=== PATIENT | male | born 1970 | race Caucasian/White ===

== ENCOUNTER 2020-04-19 21:35 | Inpatient (IN) | payer OTHER, SELFPAY ==
[2020-04-19 21:40] VITALS: BP 167/93; PULSE 90; RESP 24; TEMP 37.7; O2SAT 93; BMI 27.6
--- NOTE | 2020-04-19 21:43 | ED_ITS ---
HPI - SOB/Dyspnea General Chief Complaint: Upper Respiratory Symptoms Stated Complaint: SOB Time Seen by Provider: 04/19/20 21:35 Source: patient Mode of arrival: Ambulatory Limitations: no limitations History of Present Illness HPI Narrative: 49-year-old male nonsmoker was born premature and admits to being known COVID positive since he was swabbed at the [facility] on . His son also tested positive and had been having symptoms for now approximately 2 weeks. This patient presents because of increasing weakness and work of breathing over the past few days. He has been to the emergency department on multiple occasions, most recently yesterday at [facility]. He apparently needed a brief course of oxygen by nasal cannula which helped and then he was discharged home with return precautions. He has had episodes of nausea and vomiting. MD Complaint: shortness of breath and cough Onset (ago): day(s) Context: recent illness Severity: moderate Consistency/Duration: constant Relieving factors: nothing Exacerbating factors: exertion Associated symptoms: chest congestion Related Data Home oxygen amount: none Allergies Allergy/AdvReac Type Severity Reaction Status Date / Time No Known Drug Allergies Allergy Verified 04/19/20 22:25 Review of Systems Constitutional Constitutional: Reports chills, Reports fatigue, Denies fever(s), Denies frequent falls, Denies lethargy and Reports weakness Eyes Eyes: Denies change in vision, Denies eye discharge, Denies irritation and Denies loss of vision ENT Ears, Nose, Mouth, and Throat: Denies change in voice, Denies dizziness, Denies neck pain, Denies sore throat and Denies throat swelling Cardiovascular Cardiovascular: Denies chest pain, Denies irregular heart rhythm, Denies lightheadedness, Denies palpitations, Reports dyspnea, Denies dyspnea on exertion and Denies orthopnea Respiratory Respiratory: Reports cough, Reports dyspnea, Denies dyspnea on exertion and Reports wheezing Gastrointestinal Gastrointestinal: Denies abdominal pain, Denies change in bowel habits, Denies diarrhea, Denies nausea and Denies vomiting Musculoskeletal Musculoskeletal: Denies neck pain and Denies numbness Integumentary/Breasts Skin/Breast: Denies pruritus, Denies erythema, Denies rash and Denies wounds Neurologic Neurologic: Denies behavioral changes, Denies confusion, Denies dizziness, Denies frequent falls, Denies loss of vision, Denies numbness and Reports weakness Psychiatric Psychiatric: Denies anxiety, Denies behavioral changes, Denies confusion, Denies depression, Denies homicidal ideation and Denies suicidal ideation Endocrine Endocrine: Reports fatigue, Denies flushing and Denies palpitations Hematologic/Lymphatic Hematologic/Lymphatic: Denies easy bruising Allergic/Immunologic Allergic/Immunologic: Denies urticaria, Denies throat swelling and Reports wheezing Patient History Social History Smoking Status: Never smoker Smoking Status: Never smoker alcohol intake frequency: 0-2 drinks per day Substance Use Type: does not use Exam Narrative Exam Narrative: GENERAL: [49] year old patient appears stated age. Well- nourished, well-developed patient, in obvious distress, increased breathing harsh nonproductive cough HEAD: Atraumatic. Normocephalic. EYES: Pupils equal round and reactive. Extraocular motions intact. No scleral icterus. No injection or drainage. ENT: Nose without bleeding, purulent drainage. Throat without erythema, tonsillar hypertrophy or exudate. Airway patent. NECK: Trachea midline. Non tender CARDIOVASCULAR: Regular rate and rhythm without murmurs, gallops, or rubs. RESPIRATORY: Clear to auscultation. Breath sounds equal bilaterally. No wheezes, rales, or rhonchi. GASTROINTESTINAL: Abdomen soft, non-tender, nondistended. EXTREMITIES: No edema or joint tenderness. BACK: Nontender without deformity or crepitance. No flank tenderness. NEURO: AOx3. SKIN: No rash or erythema of visible areas Initial Vital Signs Initial Vital Signs: Vital Signs Temperature 100 F H 04/19/20 21:40 Pulse Rate 90 04/19/20 21:40 Respiratory Rate 24 04/19/20 21:40 Blood Pressure 167/93 H 04/19/20 21:40 Pulse Oximetry 93 04/19/20 21:40 Course Orders Ordered: ED Orders 04/19/20 22:05 C-Reactive Protein Quant Stat Complete Blood Count AUTO DIFF Stat Comprehensive Metabolic Panel Stat D Dimer Stat Ferritin Stat Lactate Dehydrogenase Stat NT-proBNP (BNP-Adult 18+) Stat Procalcitonin Stat Troponin & CK Cardiac Panel Stat 04/19/20 22:06 XR chest 1V Stat Arterial Blood Gas Stat 04/19/20 22:15 COVID19 Stat Influenza A & B (PCR) Stat 04/19/20 22:25 Blood Culture Stat 04/19/20 22:33 CT angio chest PE protocol Stat 04/19/20 22:43 ABG [Arterial Blood Gas] Stat Sodium Chloride (Normal Saline 0.9%) 1,000 mls @ 125 mls/hr IV CONT ASHLY Last Infusion: 04/19/20 23:49 Dose: 125 mls/hr Documented by: Infusion: 04/19/20 23:10 Dose: 0 mls/hr Documented by: Admin: 04/19/20 22:17 Dose: 125 mls/hr Documented by: ANA MARIA Discontinued Medications Dexamethasone (Dexamethasone 10 Mg/Ml Vial) 6 mg IV NOW ONE Stop: 04/19/20 23:27 Last Admin: 04/20/20 00:33 Dose: 6 mg Documented by: WALKER Remdesivir 200 mg/ Sodium (Chloride) 250 mls @ 250 mls/hr IV NOW ONE Stop: 04/19/20 23:27 Last Admin: 04/20/20 00:32 Dose: 250 mls/hr Documented by: WALKER Vital Signs Vital signs: Vital Signs - 8 hr 04/19/20 21:40 04/19/20 22:06 04/19/20 22:30 Temperature 100 F H Pulse Rate 90 89 84 Respiratory Rate 24 Blood Pressure 167/93 H Pulse Oximetry 93 93 91 04/19/20 23:00 Temperature Pulse Rate 85 Respiratory Rate 28 H Blood Pressure Pulse Oximetry 93 MDM - SOB/Dyspnea Lab Data Result diagrams: 04/19/20 22:05 04/19/20 22:05 Labs: Lab Results 04/19/20 04/19/20 04/19/20 Range/Units 22:05 22:05 22:05 WBC 6.0 (4.5-11.0) X10^3/uL RBC 5.12 (4.5-5.9) X10^6/uL Hgb 15.5 (13.5-17.5) g/dL Hct 44.8 (41-53) % MCV 87.6 (80-100) fL MCH 30.3 (26-34) PG MCHC 34.6 (30-36) % RDW 13.0 (11.6-14.8) % Plt Count 235 (150-400) X10^3/uL Neut % (Auto) 76.2 H (50-75) % Lymph % (Auto) 12.2 L (25-40) % [place] % (Auto) 10.9 (3-14) % Eos % (Auto) 0.6 L (2-4) % Baso % (Auto) 0.1 (0-2) % Neut # (Auto) 4600 (6227-3371) /uL Lymph # (Auto) 700 L (7984-8889) /uL [place] # (Auto) 700 (0-900) /uL Eos # (Auto) 0 (0-450) /uL Baso # (Auto) 0 (0-100) /uL D-Dimer 709 H (<230) ng/mL ABG pH (7.35-7.45) ABG pCO2 (35-45) mmHg ABG pO2 (80-100) mmHg ABG HCO3 (22-26) mmol/L ABG Total CO2 (21-31) mmol/L ABG O2 Saturation (95-100) % ABG Base Excess (-2-2) mmol/L FiO2 Sodium (137-145) mmol/L Potassium (3.4-5.1) mmol/L Chloride (98-107) mmol/L Carbon Dioxide (22-32) mmol/L BUN (9-20) mg/dL Creatinine (0.66-1.25) mg/dL Estimated GFR (>60) mL/min BUN/Creatinine Ratio (6-22) Glucose (70-100) mg/dL Calcium (8.4-10.2) mg/dL Ferritin (18-464) ng/mL Total Bilirubin (0.2-1.3) mg/dL AST (17-59) IU/L ALT (<50) IU/L Alkaline Phosphatase (38-126) U/L Lactate Dehydrogenase (313-618) U/L Total Creatine Kinase (55-170) U/L CK-MB (CK-2) (<2.37) ng/mL CK-MB (CK-2) Rel Index (1.5-5.0) % Troponin I (0.01-0.034) ng/mL C-Reactive Protein (<1.0) mg/dL NT-Pro-B Natriuret Pep (<125) pg/mL Total Protein (6.3-8.2) g/dL Albumin (3.5-5.0) g/dL Globulin (1.7-4.1) g/dL Albumin/Globulin Ratio (1.0-2.8) Procalcitonin 0.10 (<0.5) ng/mL COVID-19 PCR (Negative) Influenza A (RT-PCR) (NEGATIVE) Influenza B (RT-PCR) (NEGATIVE) 04/19/20 04/19/20 04/19/20 Range/Units 22:05 22:15 22:15 WBC (4.5-11.0) X10^3/uL RBC (4.5-5.9) X10^6/uL Hgb (13.5-17.5) g/dL Hct (41-53) % MCV (80-100) fL MCH (26-34) PG MCHC (30-36) % RDW (11.6-14.8) % Plt Count (150-400) X10^3/uL Neut % (Auto) (50-75) % Lymph % (Auto) (25-40) % [place] % (Auto) (3-14) % Eos % (Auto) (2-4) % Baso % (Auto) (0-2) % Neut # (Auto) (4113-8098) /uL Lymph # (Auto) (9579-4219) /uL [place] # (Auto) (0-900) /uL Eos # (Auto) (0-450) /uL Baso # (Auto) (0-100) /uL D-Dimer (<230) ng/mL ABG pH (7.35-7.45) ABG pCO2 (35-45) mmHg ABG pO2 (80-100) mmHg ABG HCO3 (22-26) mmol/L ABG Total CO2 (21-31) mmol/L ABG O2 Saturation (95-100) % ABG Base Excess (-2-2) mmol/L FiO2 Sodium 134 L (137-145) mmol/L Potassium 3.6 (3.4-5.1) mmol/L Chloride 103 (98-107) mmol/L Carbon Dioxide 26 (22-32) mmol/L BUN 16 (9-20) mg/dL Creatinine 0.85 (0.66-1.25) mg/dL Estimated GFR > 60.0 (>60) mL/min BUN/Creatinine Ratio 18.8 (6-22) Glucose 139 H (70-100) mg/dL Calcium 8.8 (8.4-10.2) mg/dL Ferritin 541 H (18-464) ng/mL Total Bilirubin 0.7 (0.2-1.3) mg/dL AST 61 H (17-59) IU/L ALT 50 H (<50) IU/L Alkaline Phosphatase 80 (38-126) U/L Lactate Dehydrogenase 972 H (313-618) U/L Total Creatine Kinase 781 H (55-170) U/L CK-MB (CK-2) 0.28 (<2.37) ng/mL CK-MB (CK-2) Rel Index 0.0 L (1.5-5.0) % Troponin I < 0.012 (0.01-0.034) ng/mL C-Reactive Protein 14.5 H (<1.0) mg/dL NT-Pro-B Natriuret Pep 56 (<125) pg/mL Total Protein 7.4 (6.3-8.2) g/dL Albumin 4.0 (3.5-5.0) g/dL Globulin 3.4 (1.7-4.1) g/dL Albumin/Globulin Ratio 1.2 (1.0-2.8) Procalcitonin (<0.5) ng/mL COVID-19 PCR Positive H (Negative) Influenza A (RT-PCR) Flu a negative (NEGATIVE) Influenza B (RT-PCR) Flu b negative (NEGATIVE) 04/19/20 Range/Units 22:43 WBC (4.5-11.0) X10^3/uL RBC (4.5-5.9) X10^6/uL Hgb (13.5-17.5) g/dL Hct (41-53) % MCV (80-100) fL MCH (26-34) PG MCHC (30-36) % RDW (11.6-14.8) % Plt Count (150-400) X10^3/uL Neut % (Auto) (50-75) % Lymph % (Auto) (25-40) % [place] % (Auto) (3-14) % Eos % (Auto) (2-4) % Baso % (Auto) (0-2) % Neut # (Auto) (5822-6789) /uL Lymph # (Auto) (2228-6848) /uL [place] # (Auto) (0-900) /uL Eos # (Auto) (0-450) /uL Baso # (Auto) (0-100) /uL D-Dimer (<230) ng/mL ABG pH 7.44 (7.35-7.45) ABG pCO2 34.2 L (35-45) mmHg ABG pO2 64 L (80-100) mmHg ABG HCO3 23 (22-26) mmol/L ABG Total CO2 24 (21-31) mmol/L ABG O2 Saturation 93 L (95-100) % ABG Base Excess -1.0 (-2-2) mmol/L FiO2 21 Sodium (137-145) mmol/L Potassium (3.4-5.1) mmol/L Chloride (98-107) mmol/L Carbon Dioxide (22-32) mmol/L BUN (9-20) mg/dL Creatinine (0.66-1.25) mg/dL Estimated GFR (>60) mL/min BUN/Creatinine Ratio (6-22) Glucose (70-100) mg/dL Calcium (8.4-10.2) mg/dL Ferritin (18-464) ng/mL Total Bilirubin (0.2-1.3) mg/dL AST (17-59) IU/L ALT (<50) IU/L Alkaline Phosphatase (38-126) U/L Lactate Dehydrogenase (313-618) U/L Total Creatine Kinase (55-170) U/L CK-MB (CK-2) (<2.37) ng/mL CK-MB (CK-2) Rel Index (1.5-5.0) % Troponin I (0.01-0.034) ng/mL C-Reactive Protein (<1.0) mg/dL NT-Pro-B Natriuret Pep (<125) pg/mL Total Protein (6.3-8.2) g/dL Albumin (3.5-5.0) g/dL Globulin (1.7-4.1) g/dL Albumin/Globulin Ratio (1.0-2.8) Procalcitonin (<0.5) ng/mL COVID-19 PCR (Negative) Influenza A (RT-PCR) (NEGATIVE) Influenza B (RT-PCR) (NEGATIVE) Imaging Data Chest x-ray: Radiologist's Impression: multi focal pneumonia consistant with covid CT scan - chest: Radiologist's Impression: No PE Discharge Plan Departure Patient Disposition: Admitted As Inpatient Clinical Impression: Pneumonia due to 2019 novel coronavirus Admit Date/Time: 04/20/20 00:50 Admit Provider: Leonardo Sexton
[2020-04-19 22:06] VITALS: PULSE 89; O2SAT 93
--- NOTE | 2020-04-19 22:06 | DI.RAD.S_ITS ---
PROCEDURE: XR CHEST 1V INDICATIONS: flu-like symptoms TECHNIQUE: One view of the chest was acquired. COMPARISON: None. FINDINGS: Surgical changes and devices: None. Lungs and pleura: Patchy right greater than left airspace opacities. No pleural effusions or pneumothorax. Mediastinum: Mediastinal contours appear normal. Heart size is normal. Bones and chest wall: No suspicious bony lesions. Overlying soft tissues appear unremarkable. IMPRESSION: Patchy right greater than left airspace opacities compatible with multifocal pneumonia. Recommend follow up chest radiograph 4-6 weeks after treatment to document resolution of findings and/or return to baseline examination. No significant discrepancy with the senior hris analyst radiology preliminary report. Dictated by: Severo Mcnulty M.D. on 04/20/2020 at 8:12 Approved by: Severo Mcnulty M.D. on 04/20/2020 at 8:13
[2020-04-19] MEDS: SODIUM CHLORIDE 0.9% 1,000 ML 125 ML IV (22:17)
[2020-04-19 22:19] LABS: Add Manual Diff / Slide Review NO; Basophils Absolute Auto 0 /uL (0-100); Basophils Percent Auto 0.1 % (0-2); Eosinophils Absolute Auto 0 /uL (0-450); Eosinophils Percent Auto 0.6 % (2-4); Hematocrit 44.8 % (41-53); Hemoglobin 15.5 g/dL (13.5-17.5); Lymphocytes Absolute Auto 700 /uL (1100-4500); Lymphocytes Percent Auto 12.2 % (25-40); Mean Corpuscular HGB Conc 34.6 % (30-36); Mean Corpuscular Hemoglobin 30.3 PG (26-34); Mean Corpuscular Volume 87.6 fL (80-100); Monocytes Absolute Auto 700 /uL (0-900); Monocytes Percent Auto 10.9 % (3-14); Neutrophils Absolute Auto 4600 /uL (1500-7000); Neutrophils Percent Auto 76.2 % (50-75); Platelet Count 235 X10^3/uL (150-400); Red Blood Cell Count 5.12 X10^6/uL (4.5-5.9)
[2020-04-19 22:26] LABS: D Dimer 709 ng/mL (<230)
[2020-04-19 22:30] VITALS: PULSE 84; O2SAT 91
[2020-04-19 22:32] LABS: Alanine Aminotransferase 50 IU/L (<50); Albumin Globulin Ratio 1.2 (1.0-2.8); Alkaline Phosphatase 80 U/L (38-126); Aspartate Aminotransferase 61 IU/L (17-59); BUN Creatinine Ratio 18.8 (6-22); Bilirubin Total 0.7 mg/dL (0.2-1.3); Blood Urea Nitrogen 16 mg/dL (9-20); Calcium 8.8 mg/dL (8.4-10.2); Carbon Dioxide 26 mmol/L (22-32); Chloride 103 mmol/L (98-107); Creatine Kinase 781 U/L (55-170); Estimated Glomerular Filt Rate > 60.0 mL/min (>60); Globulin 3.4 g/dL (1.7-4.1); Glucose 139 mg/dL (70-100); HEMOLYSIS < 15 (0-50); Lactate Dehydrogenase 972 U/L (313-618); Potassium 3.6 mmol/L (3.4-5.1); Sodium 134 mmol/L (137-145); Total Protein 7.4 g/dL (6.3-8.2)
--- NOTE | 2020-04-19 22:33 | DI.CT.S_ITS ---
PROCEDURE: CT ANGIO CHEST PE PROTOCOL INDICATIONS: severe shortness of breath, cough, multifocal infiltrate CXR, +Dimer TECHNIQUE: After the administration of intravenous contrast, 2 mm thick sections acquired from the pulmonary apices to the posterior costophrenic angles. 3-dimensional maximum intensity projection (MIP) coronal and sagittal reformats were then acquired through the thorax. For radiation dose reduction, the following was used: automated exposure control, adjustment of mA and/or kV according to patient size. COMPARISON: None. FINDINGS: Image quality: Excellent. Pulmonary arteries: Pulmonary arteries are normal in size, and demonstrate no intraluminal filling defects to suggest central pulmonary embolism. Lungs and pleura: There are numerous scattered patchy ground-glass opacities involving the bilateral hemithoraces with a more predominant peripheral distribution. Some perihilar involvement noted. No pleural effusions or pneumothorax. Central and peripheral airways are patent. Mediastinum: Heart size is normal, without pericardial effusion. No mediastinal or hilar adenopathy. Thoracic aorta is normal in caliber and enhancement. Esophagus is normal in caliber, without hiatal hernia. Bones and chest wall: No suspicious bony lesions. Ribs and thoracic spine appear intact throughout. Thyroid gland is unremarkable . No axillary or supraclavicular adenopathy. Abdomen: Visualized upper abdominal solid organs appear normal in the early arterial phase of enhancement. IMPRESSION: 1. No acute pulmonary emboli identified. No evidence for thoracic aortic aneurysm or dissection. 2. Diffuse patchy ground-glass opacities of the bilateral hemithoraces compatible with an infectious process/multifocal pneumonia with viral etiology suspected. Bacterial pneumonia not excluded. Recommend follow-up imaging to document resolution. No significant discrepancy with the night warehouse manager radiology preliminary report. Dictated by: Severo Mcnulty M.D. on 04/20/2020 at 8:28 Approved by: Severo Mcnulty M.D. on 04/20/2020 at 8:59
[2020-04-19 22:42] LABS: NT-proBNP (BNP-Adult 18+) 56 pg/mL (<125); Troponin I < 0.012 ng/mL (0.01-0.034)
[2020-04-19 22:45] LABS: C-Reactive Protein Quant 14.5 mg/dL (<1.0); Creatine Kinase MB 0.28 ng/mL (<2.37)
[2020-04-19 22:59] LABS: Influenza A - CEPHEID Flu A NEGATIVE (NEGATIVE); Influenza B - CEPHEID Flu B NEGATIVE (NEGATIVE)
[2020-04-19 23:00] VITALS: PULSE 85; RESP 28; O2SAT 93
[2020-04-19 23:04] LABS: Ferritin 541 ng/mL (18-464)
[2020-04-19 23:09] LABS: PCO2 ABG 34.2 mmHg (35-45); PO2 ABG 64 mmHg (80-100); pH ABG 7.44 (7.35-7.45)
[2020-04-19 23:10] LABS: HCO3 ABG 23 mmol/L (22-26); TCO2 ABG 24 mmol/L (21-31)
[2020-04-19 23:11] LABS: Fractionated Inspired Oxygen 21; Oxygen Saturation ABG 93 % (95-100)
[2020-04-19 23:30] VITALS: PULSE 84; RESP 24; O2SAT 96
[2020-04-19 23:34] VITALS: BP 182/87; PULSE 83; RESP 28; O2SAT 95
[2020-04-20] VITALS (17 sets, daily range): BP systolic 133–172; BP diastolic 78–102; PULSE 62–93; RESP 16–30; TEMP 35.3–36.7; O2SAT 92–98; BMI 31.5
--- NOTE | 2020-04-20 | PC.NURSE ---
Pt placed on 2L O2 via NC per MD request.
[2020-04-20] MEDS: REMDESIVIR 200 MG in SODIUM CHLORIDE 0.9% 210 ML 250 ML IV (00:32)
[2020-04-20] MEDS: DEXAMETHASONE 10 MG/ML VIAL 6 MG IV ×2 (00:33→20:57)
--- NOTE | 2020-04-20 01:35 | PM.HP.1 ---
History of Present Illness History of Present Illness Date Patient Seen: 04/20/20 Time Patient Seen: 01:45 Chief complaint: SOB Narrative: Mr. Bola Bender is a 49-year-old male with a past medical cyst history only significant for chronic migraines presents to the ER today with shortness of breath. The patient reports that 10 days ago he began having symptoms of malaise and cough that progressed to myalgia and nausea with fevers and chills. The patient has been tested positive for [place] in and has been seen at [facility] ER most recent visit was yesterday Marielos was seen provided a brief treatment with oxygen and discharged to home. The patient continues to worsen with dry nonproductive cough progressing into paroxysms resulting with nausea and vomiting. The patient states his son became ill approximately 2 weeks ago and he became symptomatic 2 days later. His had a child in class who also tested positive for covered 19. The patient endorses a migraine headache exacerbated by coughing and has taken sumatriptan with some improvement. He denies reports chest wall pain abdominal pain from coughing. He denies palpitations or wheezing. He has had no changes in bowel habits and denies urinary symptoms. Upon arrival to the ER the patient has a temperature 100.0?, heart rate is 90, blood pressure 167/93, respirations 24 saturating 93% on room air. A chest x-rays taken which shows patchy bilateral infiltrates. A CT is obtained which finds no PE and patchy ground-glass interstitial infiltrates bilaterally. on laboratory analysis he has white count of 6.0, hemoglobin 15.5, hematocrit 44.8 and platelets of 235. His electrolytes are all within normal limits and has a BUN is 16 creatinine 0.85. His nonfasting glucose is 139. His liver functions are all within normal limits. His Coban 19 markers include D-dimer at 709, CRP of 14.5, ferritin of 541, LDH 972 and a CK of 781. His CK-MB index is 0.28 with an index of 0 0.0 as well as a negative troponin. His procalcitonin is 0.10. His covered screening still test positive. In the ED the patient received dexamethasone 6 mg IV and room does severe loading dose of 200 mg IV. The patient is admitted to the medicine service for [place] in 19 pneumonia. Patient History Medical History (Updated 04/20/20 @ 09:40 by KARIN Edmonds) Migraine headache Surgical History (Updated 04/20/20 @ 09:40 by KARIN Edmonds) History of knee surgery Family & Social History Family History (Updated 04/20/20 @ 09:41 by KARIN Edmonds) Father Trauma Mother Cardiovascular disease Social History: household members spouse,family,children Safety & Behavioral: Feels Safe in Current Yes Environment Suicidal Ideation Description None Suicide Plan Description No Plan Tobacco & Substance use: Smoking Status Never smoker alcohol intake frequency 0-2 drinks per day Substance Use Type does not use Meds Home Medications and Allergies Home Medications Medication Instructions Recorded Confirmed Type sumatriptan succinate 100 mg PO 4-6XD PRN 04/20/20 04/20/20 History Allergies Allergy/AdvReac Type Severity Reaction Status Date / Time No Known Drug Allergies Allergy Verified 04/19/20 22:25 Review of Systems Review of Systems ROS: Yes All systems reviewed with the patient and are negative except as otherwise documented Exam Vital Signs (past 8 hours): - 04/20/20 02:03 04/20/20 02:37 04/20/20 02:58 Temperature 97.5 F L 98 F Pulse Rate 93 H 86 75 Respiratory Rate 20 22 Blood Pressure 166/93 H 172/102 H Pulse Oximetry 95 95 97 04/20/20 03:42 04/20/20 05:49 04/20/20 08:41 Temperature 98.1 F Pulse Rate 83 80 80 Respiratory Rate 23 18 Blood Pressure 172/102 H 157/83 H Pulse Oximetry 96 98 Oxygen Delivery Method Nasal Cannula Oxygen Flow Rate 2 Narrative Exam Narrative: GENERAL APPEARANCE: well developed, obese male with a BMI of 31.5, obviously ill-appearing. HEENT: Normocephalic, PERRLA, conjunctiva injected, EOMs intact without nystagmus, no sinus tenderness to percussion, no rhinorrhea, mucous membranes are moist and pink without lesions or exudate. NECK/THYROID: neck supple, no JVD, no thyromegaly, trachea midline. LYMPH NODES: no cervical or supraclavicular lymphadenopathy. SKIN: [place], warm and dry, no visible lesions, rashes, ulcerations or petechiae. HEART: regular rate and rhythm, S1-S2, no murmur, no rubs or gallops, brisk capillary refill, no edema LUNGS: Lungs coarse bilaterally more so bilateral bases, frequent nonproductive try, raspy cough present CHEST: Symmetrical movement, no accessory muscle use, good tidal volume. ABDOMEN: Soft, no distention, no abdominal tenderness, no organomegaly, no flank or suprapubic tenderness, active bowel tones. BACK: Normal curvature, nontender to palpation, no CVA tenderness on percussion EXTREMITIES: moves all extremities, strength is 5/5 and symmetrical, no deformities or joint effusions. NEUROLOGIC: AAO x4, no lateral neurologic deficits, cranial nerves II-XII grossly intact, sensation intact to light touch, hearing grossly normal to speech. PSYCH: Flat affect, fair eye contact, cooperative, stable behavior Objective Labs Result Diagrams: 04/20/20 04:10 04/20/20 04:10 Labs: Laboratory Results - last 24 hr 04/19/20 04/19/20 04/19/20 22:05 22:05 22:05 WBC 6.0 RBC 5.12 Hgb 15.5 Hct 44.8 MCV 87.6 MCH 30.3 MCHC 34.6 RDW 13.0 Plt Count 235 Neut % (Auto) 76.2 H Lymph % (Auto) 12.2 L [place] % (Auto) 10.9 Eos % (Auto) 0.6 L Baso % (Auto) 0.1 Neut # (Auto) 4600 Lymph # (Auto) 700 L [place] # (Auto) 700 Eos # (Auto) 0 Baso # (Auto) 0 D-Dimer 709 H ABG pH ABG pCO2 ABG pO2 ABG HCO3 ABG Total CO2 ABG O2 Saturation ABG Base Excess FiO2 Sodium Potassium Chloride Carbon Dioxide BUN Creatinine Estimated GFR BUN/Creatinine Ratio Glucose Calcium Magnesium Ferritin Total Bilirubin AST ALT Alkaline Phosphatase Lactate Dehydrogenase Total Creatine Kinase CK-MB (CK-2) CK-MB (CK-2) Rel Index Troponin I C-Reactive Protein NT-Pro-B Natriuret Pep Total Protein Albumin Globulin Albumin/Globulin Ratio Procalcitonin 0.10 Nasal Screen MRSA (PCR) COVID-19 PCR Influenza A (RT-PCR) Influenza B (RT-PCR) 04/19/20 04/19/20 04/19/20 22:05 22:15 22:15 WBC RBC Hgb Hct MCV MCH MCHC RDW Plt Count Neut % (Auto) Lymph % (Auto) [place] % (Auto) Eos % (Auto) Baso % (Auto) Neut # (Auto) Lymph # (Auto) [place] # (Auto) Eos # (Auto) Baso # (Auto) D-Dimer ABG pH ABG pCO2 ABG pO2 ABG HCO3 ABG Total CO2 ABG O2 Saturation ABG Base Excess FiO2 Sodium 134 L Potassium 3.6 Chloride 103 Carbon Dioxide 26 BUN 16 Creatinine 0.85 Estimated GFR > 60.0 BUN/Creatinine Ratio 18.8 Glucose 139 H Calcium 8.8 Magnesium Ferritin 541 H Total Bilirubin 0.7 AST 61 H ALT 50 H Alkaline Phosphatase 80 Lactate Dehydrogenase 972 H Total Creatine Kinase 781 H CK-MB (CK-2) 0.28 CK-MB (CK-2) Rel Index 0.0 L Troponin I < 0.012 C-Reactive Protein 14.5 H NT-Pro-B Natriuret Pep 56 Total Protein 7.4 Albumin 4.0 Globulin 3.4 Albumin/Globulin Ratio 1.2 Procalcitonin Nasal Screen MRSA (PCR) COVID-19 PCR Positive H Influenza A (RT-PCR) Flu a negative Influenza B (RT-PCR) Flu b negative 04/19/20 04/20/20 04/20/20 22:43 02:15 04:10 WBC 5.8 RBC 4.95 Hgb 15.2 Hct 43.4 MCV 87.6 MCH 30.6 MCHC 34.9 RDW 12.9 Plt Count 237 Neut % (Auto) 82.3 H Lymph % (Auto) 11.1 L [place] % (Auto) 6.3 Eos % (Auto) 0.2 L Baso % (Auto) 0.1 Neut # (Auto) 4800 Lymph # (Auto) 600 L [place] # (Auto) 400 Eos # (Auto) 0 Baso # (Auto) 0 D-Dimer ABG pH 7.44 ABG pCO2 34.2 L ABG pO2 64 L ABG HCO3 23 ABG Total CO2 24 ABG O2 Saturation 93 L ABG Base Excess -1.0 FiO2 21 Sodium Potassium Chloride Carbon Dioxide BUN Creatinine Estimated GFR BUN/Creatinine Ratio Glucose Calcium Magnesium Ferritin Total Bilirubin AST ALT Alkaline Phosphatase Lactate Dehydrogenase Total Creatine Kinase CK-MB (CK-2) CK-MB (CK-2) Rel Index Troponin I C-Reactive Protein NT-Pro-B Natriuret Pep Total Protein Albumin Globulin Albumin/Globulin Ratio Procalcitonin Nasal Screen MRSA (PCR) Negative for mrsa COVID-19 PCR Influenza A (RT-PCR) Influenza B (RT-PCR) 04/20/20 04:10 WBC RBC Hgb Hct MCV MCH MCHC RDW Plt Count Neut % (Auto) Lymph % (Auto) [place] % (Auto) Eos % (Auto) Baso % (Auto) Neut # (Auto) Lymph # (Auto) [place] # (Auto) Eos # (Auto) Baso # (Auto) D-Dimer ABG pH ABG pCO2 ABG pO2 ABG HCO3 ABG Total CO2 ABG O2 Saturation ABG Base Excess FiO2 Sodium 135 L Potassium 3.9 Chloride 103 Carbon Dioxide 29 BUN 12 Creatinine 0.86 Estimated GFR > 60.0 BUN/Creatinine Ratio 14.0 Glucose 170 H Calcium 8.6 Magnesium 2.2 Ferritin Total Bilirubin 0.5 AST 60 H ALT 48 Alkaline Phosphatase 72 Lactate Dehydrogenase 974 H Total Creatine Kinase CK-MB (CK-2) CK-MB (CK-2) Rel Index Troponin I C-Reactive Protein NT-Pro-B Natriuret Pep Total Protein 7.2 Albumin 3.7 Globulin 3.5 Albumin/Globulin Ratio 1.1 Procalcitonin Nasal Screen MRSA (PCR) COVID-19 PCR Influenza A (RT-PCR) Influenza B (RT-PCR) Assessment & Plan Assessment & Plan narrative: This is a 49-year-old male patient who presents to the ER with shortness of breath onset 10 days ago with associated cough, fevers and myalgias. The patient has tested positive for COVID-19. 1. Covered 19 pneumonia, acute, present on admission, active. -the patient presents with an elevated respiratory rate of 24 and oxygen saturation 93 decreasing to 91 on room air. Patient is started on supplemental oxygen. -the patient has multiple positive markers including D-dimer elevated at 709, CRP 14.5, ferritin of 541, LDH 972, total CK of 781. -arterial blood gas reveals a pH of 7.44, pCO2 of 34.2, PO2 of 64, bicarb of 23 with a base excess of -1. -CTA of the chest finds no PE, patchy ground-glass interstitial infiltrates bilaterally. -ordered dexamethasone 6 mg IV daily for 10 days, 1st dose given in the ER, ordered fingerstick blood sugar checks a.c. and HS with low-dose correctional insulin anticipation of elevated blood sugars from steroid therapy. -ordered remdesivir 100 mg daily for 4 days, 1st loading dose of 200 mg is administered in the ER. -order guaifenesin 600 mg twice daily as needed. 2. Migraine headaches, acute, present on admission, active. -patient early presents with with a typical migraine headache worsened by frequent coughing. -will continue patient's home regimen of sumatriptan 100 mg by mouth, may repeat after 2 hours, maximum dose 200 mg/24 hours. 3. Elevated blood pressure reading without diagnosis of hypertension, present on admission, active. -patient presents with a blood pressure of 167/93 and 177/102 upon arrival to the floor. -the patient has not been prescribed antihypertensives, ordered losartan 25 mg daily. -will follow blood pressures and escalate doses as indicated. VTE prophylaxis: Heparin IV fluid: Saline lock Diet: Consistent carbohydrate. Code status: Full code, patient designates his Franca to be his surrogate decision maker. The patient is admitted to the hospital due to the severity of his symptoms hypoxia and risk for further deterioration complications and adverse events. The patient is admitted as an inpatient with expected length of stay to be greater than 2 midnights. COVID-19 COVID-19 status: Positive Result date/Date tested (Pos, Neg/Pending): 04/19/20 Scores GCS Dionisio coma scale eye opening: Spontaneous [place] coma scale verbal response: Orientated Dionisio coma scale motor response: Obey commands Dionisio coma scale total score: 15
[2020-04-20] MEDS: ACETAMINOPHEN 325 MG TABLET 650 MG PO (02:45)
[2020-04-20] MEDS: guaiFENesin ER 600 MG TAB PO (02:46)
--- NOTE | 2020-04-20 02:59 | PC.ADMIT ---
[id number] [facility] Admission Note: Pt arrived to unit, walked to bed from stretcher. Alert and oriented x4. SOB upon exertion. Frequent dry cough. Pt reports mild general pain. Darshan FRAZIER notified of pt increased BP. Pt on 2L O2 NC sats running at 95-97%. The patient,Bola Bender,49 y/o, was given written information regarding hospital policies, unit procedures and contact persons. Patient's smoking status: Never smoker. Vital Signs - 8 hr 04/19/20 21:40 04/19/20 22:06 04/19/20 22:30 Temperature 100 F H Pulse Rate 90 89 84 Respiratory Rate 24 Blood Pressure 167/93 H Pulse Oximetry 93 93 91 04/19/20 23:00 04/19/20 23:30 04/19/20 23:34 Temperature Pulse Rate 85 84 83 Respiratory Rate 28 H 24 28 H Blood Pressure 182/87 H Pulse Oximetry 93 96 95 04/20/20 00:00 04/20/20 00:01 04/20/20 00:30 Temperature Pulse Rate 79 80 82 Respiratory Rate 26 H 28 H 30 H Blood Pressure 151/100 H 158/86 H Pulse Oximetry 95 95 94 04/20/20 01:00 04/20/20 02:03 04/20/20 02:37 Temperature 97.5 F L Pulse Rate 84 93 H 86 Respiratory Rate 30 H 20 Blood Pressure 163/85 H 166/93 H Pulse Oximetry 97 95 95 04/20/20 02:58 Temperature 98 F Pulse Rate 75 Respiratory Rate 22 Blood Pressure 172/102 H Pulse Oximetry 97
[2020-04-20] MEDS: LOSARTAN 25 MG TABLET PO ×2 (03:42→08:35)
[2020-04-20 04:27] LABS: Add Manual Diff / Slide Review NO; Basophils Absolute Auto 0 /uL (0-100); Basophils Percent Auto 0.1 % (0-2); Eosinophils Absolute Auto 0 /uL (0-450); Eosinophils Percent Auto 0.2 % (2-4); Hematocrit 43.4 % (41-53); Hemoglobin 15.2 g/dL (13.5-17.5); Lymphocytes Absolute Auto 600 /uL (1100-4500); Lymphocytes Percent Auto 11.1 % (25-40); Mean Corpuscular HGB Conc 34.9 % (30-36); Mean Corpuscular Hemoglobin 30.6 PG (26-34); Mean Corpuscular Volume 87.6 fL (80-100); Monocytes Absolute Auto 400 /uL (0-900); Monocytes Percent Auto 6.3 % (3-14); Neutrophils Absolute Auto 4800 /uL (1500-7000); Neutrophils Percent Auto 82.3 % (50-75); Platelet Count 237 X10^3/uL (150-400); Red Blood Cell Count 4.95 X10^6/uL (4.5-5.9); Red Cell Distribution Width 12.9 % (11.6-14.8); White Blood Cell Count 5.8 X10^3/uL (4.5-11.0)
[2020-04-20 04:32] LABS: Alanine Aminotransferase 48 IU/L (<50); Albumin 3.7 g/dL (3.5-5.0); Albumin Globulin Ratio 1.1 (1.0-2.8); Alkaline Phosphatase 72 U/L (38-126); Aspartate Aminotransferase 60 IU/L (17-59); Bilirubin Total 0.5 mg/dL (0.2-1.3); Blood Urea Nitrogen 12 mg/dL (9-20); Calcium 8.6 mg/dL (8.4-10.2); Carbon Dioxide 29 mmol/L (22-32); Chloride 103 mmol/L (98-107); Estimated Glomerular Filt Rate > 60.0 mL/min (>60); Globulin 3.5 g/dL (1.7-4.1); Glucose 170 mg/dL (70-100); HEMOLYSIS < 15 (0-50); Magnesium 2.2 mg/dL (1.6-2.3); Potassium 3.9 mmol/L (3.4-5.1); Sodium 135 mmol/L (137-145); Total Protein 7.2 g/dL (6.3-8.2)
[2020-04-20 04:39] LABS: Lactate Dehydrogenase 974 U/L (313-618)
[2020-04-20 08:07] LABS: COVID19 -Nasal RAPID POSITIVE (Negative)
[2020-04-20] MEDS: HEPARIN 5,000 UNIT/ML VIAL 5000 UNIT SUBCUT ×2 (08:34→20:57)
[2020-04-20] MEDS: INSULIN ASPART 100 UNIT/ML INSULN PEN SUBCUT (08:35)
[2020-04-20] MEDS: SUMAtriptan 25 MG TABLET 100 MG PO (16:49)
[2020-04-20] MEDS: SODIUM CHLORIDE 0.9% FLUSH 10 ML IV (16:52)
--- NOTE | 2020-04-20 17:12 | PC.NURSE ---
Pt AAOx4, good breath sounds bilaterally with fine crackles in the bases. C/O migraine headache, Imitrex PO given. Maintaining O2 Sats with 2L O2. Transferring patient to rm 223, report given to Lou ANAND.
--- NOTE | 2020-04-20 18:44 | PC.NURSE ---
EVENING SHIFT: Pt. to transfer from ICU to acute care. Report received from Cindy. Care assumed at 1730. Pt A&O, appropriate. Independent in room. Persistent cough, especially with talking. Denies pain.
[2020-04-20] MEDS: REMDESIVIR 100 MG in SODIUM CHLORIDE 0.9% 230 ML 250 ML IV (21:31)
[2020-04-21] MEDS: CALCIUM CARBONATE 500 MG TAB PO (00:11)
[2020-04-21 00:41] VITALS: BP 146/94; PULSE 82; RESP 20; TEMP 36.5; O2SAT 95
[2020-04-21] MEDS: ACETAMINOPHEN 325 MG TABLET 650 MG PO (05:57)
[2020-04-21 06:04] VITALS: BP 142/87; PULSE 56; RESP 19; TEMP 36.6; O2SAT 96
[2020-04-21] MEDS: SUMAtriptan 25 MG TABLET 100 MG PO (07:49)
[2020-04-21] MEDS: LOSARTAN 25 MG TABLET PO (08:00)
[2020-04-21] MEDS: HEPARIN 5,000 UNIT/ML VIAL 5000 UNIT SUBCUT (08:00)
[2020-04-21] MEDS: DEXAMETHASONE 10 MG/ML VIAL 6 MG IV (08:00)
[2020-04-21] MEDS: INSULIN ASPART 100 UNIT/ML INSULN PEN SUBCUT (08:01)
[2020-04-21 08:12] VITALS: BP 158/95; PULSE 66; RESP 16; TEMP 36.1; O2SAT 95
[2020-04-21 08:52] VITALS: O2SAT 94
--- NOTE | 2020-04-21 11:58 | PC.NURSE ---
Pt is now getting dressed. Tele and IV have been removed. Went over d/c instructions with Pt-discussed d/c meds, time of last dose, stroke education, accessing Pt Portal, and follow up. Advised Pt to self quarantine with family (who are also COVID +). Pt agrees. Advised Pt to call MD or return to ER if his symptoms increase or he has increased respiratory difficulty. Encouraged fluid intake to prevent constipation or dehydration. Pt states his migraine is now gone and he is feeling better. Pt will be taken out to Spouse's POV when she has arrived.
--- NOTE | 2020-04-21 16:31 | P.DS_ITS ---
History of Present Illness History of Present Illness Date Patient Seen: 04/21/20 Chief complaint: SOB Narrative: Mr. Bola Bender is a 49-year-old male with a past medical cyst history only significant for chronic migraines presents to the ER today with shortness of breath. The patient reports that 10 days ago he began having symptoms of malaise and cough that progressed to myalgia and nausea with fevers and chills. The patient has been tested positive for [place] in and has been seen at [facility] ER most recent visit was yesterday Marielos was seen provided a brief treatment with oxygen and discharged to home. The patient continues to worsen with dry nonproductive cough progressing into paroxysms resulting with nausea and vomiting. The patient states his son became ill approximately 2 weeks ago and he became symptomatic 2 days later. His had a child in class who also tested positive for covered 19. The patient endorses a migraine headache exacerbated by coughing and has taken sumatriptan with some improvement. He denies reports chest wall pain abdominal pain from coughing. He denies palpitations or wheezing. He has had no changes in bowel habits and denies urinary symptoms. Upon arrival to the ER the patient has a temperature 100.0?, heart rate is 90, blood pressure 167/93, respirations 24 saturating 93% on room air. A chest x- rays taken which shows patchy bilateral infiltrates. A CT is obtained which finds no PE and patchy ground-glass interstitial infiltrates bilaterally. on laboratory analysis he has white count of 6.0, hemoglobin 15.5, hematocrit 44.8 and platelets of 235. His electrolytes are all within normal limits and has a BUN is 16 creatinine 0.85. His nonfasting glucose is 139. His liver functions are all within normal limits. His Coban 19 markers include D-dimer at 709, CRP of 14.5, ferritin of 541, LDH 972 and a CK of 781. His CK-MB index is 0.28 with an index of 0 0.0 as well as a negative troponin. His procalcitonin is 0.10. His covered screening still test positive. In the ED the patient received dexa methasone 6 mg IV and room does severe loading dose of 200 mg IV. The patient is admitted to the medicine service for [place] in 19 pneumonia. Discharge Providers Provider Date of admission: 04/20/20 00:50 Discharge Date: 04/21/20 Consults: 04/20/20 01:16 Consult to Respiratory Therapy Evaluate & Treat Comment: COVID-19 pneumonia, hypoxia Physician Instructions: Evaluate and treat 04/20/20 01:19 Consult to Discharge Planning Routine Comment: Discharge provider: Batsheva Springer MD Summary Hospital Course Discharge Diagnosis: 1. Covid-19 Pneumonia 2. Acute Hypoxic REspiratory Failure 3. Hypertension 4. Migraine Headache Hospital Course: Patient admitted to the hospital for Covid-19 pneumonia. Patients and son are known to be Covid-19 positive. He presented with increasing shortness of breath. Patient was found to be hypoxic on admission. After admission to the hospital patient was started on Dexamethasone and REmdesevir. He initially had a room air oxygen saturation of 89-90%. By the second hospital day patient was able to come off oxygen without incident. He continues to have an intermittant cough but overal feels much better. Patient was deemed appropriate to discharge home. Status at Discharge Cognitive/behavioral status at discharge: oriented Functional status at discharge: independent ambulation Overall status at discharge: patient is back to baseline Time Spent with Patient Time spent: Less than 30 minutes Exam Vital Signs (past 8 hours): - 04/21/20 08:52 Pulse Oximetry 94 Oxygen Delivery Method Room Air Oxygen Flow Rate 2 Narrative Exam Narrative: pleasant male in no acute distress Lungs: Clear to auscultation but decreased breath sounds bilaterally CV: RRR nl Sl S2 Abd: soft/ non tender/ non distended Ext: no edema Objective Labs Result Diagrams: 04/20/20 04:10 04/20/20 04:10 [facility] Medical History (Updated 04/20/20 @ 09:40 by KARIN Edmonds) Migraine headache Surgical History (Updated 04/20/20 @ 09:40 by KARIN Edmonds) History of knee surgery Family History (Updated 04/20/20 @ 09:41 by KARIN Edmonds) Father Trauma Mother Cardiovascular disease Social History household members: spouse, family and children Smoking Status: Never smoker Discharge Assessment & Plan Assessment and Plan Assessment: Covid-19 Pneumonia Acute Hypoxic REspiratory Failure Hypertension MIgraine Headache Plan of Treatment: Medications as prescribed Follow up with PCP 1-2 weeks Discharge Plan Discharge Plan Patient Disposition: Home Provider Discharge Comment: follow up with PCP, Dr. Zamarripa next week Discharge orders & Medications Prescriptions: New guaifenesin [Mucus Relief ER] 600 mg Tablet Extended Release 12hr 600 mg PO BID PRN (Reason: Cough) Qty: 14 RF: 0 losartan 25 mg Tablet 25 mg PO DAILY Qty: 30 RF: 0 Continued sumatriptan succinate 100 mg tablet 100 mg PO 4-6XD PRN (Reason: Headache) RF: 0 Diet/Activity/Treatments Diet: Low-sodium Visit Report/Discharge Packet Instructions: Pneumonia-Adult, DI for COVID-19 (Suspected or Confirmed )
== END 2020-04-21 14:03 | disposition home or self-care (01) | DRG 177 ==
LOC: ED 22:33 → AC 04-20 00:51 → ICU 04-20 01:15 → AC 04-20 17:41
PROVIDERS: Admitting Provider Nurse Practitioner Adult Health; Emergency Provider Emergency Medicine; Referring Provider Emergency Medicine; Visit Provider Nurse Practitioner Adult Health
DX: U07.1 COVID-19 (principal); J12.89 Other viral pneumonia; J96.01 Acute respiratory failure with hypoxia; E66.9 Obesity, unspecified; Z68.31 Body mass index [BMI] 31.0-31.9, adult; G43.909 Migraine, unspecified, not intractable, without status migrainosus; I10 Essential (primary) hypertension
CPT/HCPCS: 36415; 36600; 71045; 71275; 80053; 82550; 82553; 82728; 82805; 82962; 83615; 83735; 83880; 84145; 84484; 85025; 85379; 86140; 87040; 87502; 87635; 87797; 94762; 96361; 96365; 96375; 99284; 99285; A9270; J1100; J1644; Q9967